=== PATIENT | female | born 1975 | race Caucasian/White ===

== ENCOUNTER 2017-05-02 08:17 | Emergency (ER) | payer OTHER ==
[2017-05-02 08:55] VITALS: BP 98/60
--- NOTE | 2017-05-02 09:15 | UC ---
Lower Extremity/Ankle HPI - HPI Summary HPI Summary: 41 YO FEMALE INJURED LEFT FOOT ABOUT MIDNIGHT PAIN/SWELLING OVER BASE OF FIRST MT HAS CAM BOOT AT HOME AND THAT HELPED SWELLING DECREASED SINCE YESTERDAY PAIN WITH WT PAIN NO PAIN AT REST - History of Current Complaint Chief Complaint: UCLowerExtremity Stated Complaint: FOOT COMPLAINT Time Seen by Provider: 05/02/17 09:05 Hx Obtained From: Patient Hx Last Menstrual Period: 04/11/17 Onset/Duration: Sudden Onset, Lasting Hours Severity Initially: Moderate Severity Currently: Mild Pain Intensity: 1 Pain Scale Used: 0-10 Numeric Aggravating Factor(s): Standing, Ambulation Alleviating Factor(s): Rest, Elevation Able to Bear Weight: Yes - WITH MOD PAIN - Allergies/Home Medications Allergies/Adverse Reactions: Allergies Allergy/AdvReac Type Severity Reaction Status Date / Time No Known Allergies Allergy Unverified 05/02/17 08:50 PMH/Surg Hx/FS Hx/Imm Hx Previously Healthy: Yes - Surgical History Surgical History: Yes Surgery Procedure, Year, and Place: DENTAL PROCEDURES. left pinky - Family History Known Family History: Negative: Cardiac Disease, Hypertension, Diabetes, Renal Disease, Respiratory Disease, Seizure Disorder - Social History Alcohol Use: Weekly Alcohol Amount: 2-3/WEEK Substance Use Type: None Smoking Status (MU): Never Smoked Tobacco Review of Systems Constitutional: Negative Skin: Negative Eyes: Negative ENT: Negative Respiratory: Negative Cardiovascular: Negative Gastrointestinal: Negative Genitourinary: Negative Motor: Negative Neurovascular: Negative Musculoskeletal: Arthralgia Neurological: Negative Psychological: Negative Is Patient Immunocompromised?: No All Other Systems Reviewed And Are Negative: Yes Physical Exam Triage Information Reviewed: Yes Appearance: Well-Appearing, No Pain Distress, Well-Nourished Vital Signs: Initial Vital Signs Temp 99.2 F 05/02/17 08:51 Pulse 61 05/02/17 08:51 Resp 16 05/02/17 08:51 BP 98/60 05/02/17 08:51 Pulse Ox 100 05/02/17 08:51 Vital Signs Reviewed: Yes Eyes: Positive: Conjunctiva Clear ENT: Positive: Hearing grossly normal. Negative: Nasal congestion, Nasal drainage, Trismus, Muffled/hoarse voice Neck: Positive: Supple Respiratory: Positive: Lungs clear, Normal breath sounds, No respiratory distress, No accessory muscle use Cardiovascular: Positive: RRR, No Murmur Musculoskeletal: Positive: Other: - SEE IMAGE Neurological: Positive: Alert Psychological Exam: Normal Skin Exam: Normal Diagnostics - Radiology No standard instances Xray Interpretation: No Acute Changes Radiology Interpretation Completed By: Radiologist Lower Extremity Course/Dx - Differential Dx/Diagnosis Provider Diagnoses: left foot sprain Discharge - Discharge Plan Condition: Stable Disposition: HOME Patient Education Materials: Foot Sprain (ED) Referrals: [facility] [Outside] - As Soon As Possible Kan Arce MD [Primary Care Provider] - Additional Instructions: elevate ice twice daily CAM boot advil or tylenol if needed Images Feet (Multiple View): 1 - PAIN SWELLING
--- NOTE | 2017-05-02 09:34 | RAD ---
Indication: Pain at the base of the LEFT first metatarsal following injury last night. Comparison: April 28, 2016 Technique: AP, lateral, and oblique views LEFT foot. Report: Normal articular alignment. Minimal osteophytosis and joint space narrowing at the first metatarsal phalangeal joint. Negative for fracture or radiographic stigmata of stress reaction. Unremarkable soft tissue contours. IMPRESSION: 1. No traumatic injury evident. 2. 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
== END 2017-05-02 10:02 | disposition home or self-care (01) ==
LOC: UCEAST 08:17
DX: S93.602A Unspecified sprain of left foot, initial encounter (principal); X58.XXXA Exposure to other specified factors, initial encounter; Y92.9 Unspecified place or not applicable
CPT/HCPCS: 99212; G0463